=== PATIENT | female | born 1940 | race Caucasian/White ===

== ENCOUNTER → 2016-11-30 | Outpatient (CLI) | payer MEDICARE, BC ==
[~2016-11-30] MED LIST: AMBIEN PO; CAPOZIDE PO; CAPTOPRIL PO; MILK OF MAGNESIA PO; NEURONTIN300 MG PO; OXYCODONE-ACET1 EACH PO; PATIENT'S PHARMACY; THYROID PO
--- NOTE | ~2016-11-30 | MR31 ---
[facility] A Service of [facility] RADIOLOGY TEXT RESULTS PATIENT: KRIS INTERIANO LOCATION: [facility] : 36 UNIT #: [id number] AGE: [address]: Alex Davidson MD SEX: F ORDER DR: [id number] [place] [id number] O MR#: [id number] Acc #: [id number] NAME: KRIS INTERIANO : 1940 SEX: F STUDY DATE/TIME: 11/30/2016 11:18 UNIT: [facility] ROOM: STUDY DESCRIPTION: MR Cervical WWo Contrast Attending Physician: Alex Davidson M.D. Referring Physician: Alex Davidson M.D. Ordering Physician: Alex Davidson M.D. Primary Care Physician: Primary Care Physician No MRI CENTER REPORT This report is preliminary unless electronic signature is present. EXAM Cervical spine MRI with and without contrast 11/30/2016 PROCEDURE Routine cervical spine MRI with and without contrast. COMPARISON Prior MRI 10/19/2009. HISTORY Previous cervical fusion with 1 year history of increasing neck pain. FINDINGS There has been multilevel corpectomy and strut grafting. Strut graft extends from C4-C7. Alignment is normal. Allowing for postoperative changes, bone marrow and cord signal appear normal. The paraspinous tissues are remarkable only for very tortuous common carotid arteries bilaterally left greater than right. No abnormal enhancement is seen. At C2-3, there is no canal or foraminal compromise. At C3-4, there is mild canal and left foraminal narrowing while the right foramen is normal. At C4-5, there is mild canal narrowing and moderate to severe left foraminal narrowing while the right foramen is normal. At C5-6, the canal and right foramen are normal while there is mild left foraminal narrowing. At C6-7, the canal is normal and there is minimal to mild right and moderate left foraminal narrowing. [facility] A Service [facility] RADIOLOGY TEXT RESULTS PATIENT: KRIS INTERIANO [id number] 36 UNIT #: [id number] AGE: [address]: Alex Davidson MD SEX: F ORDER DR: At C7-T1, the canal and right foramen are normal. There is mild left foraminal narrowing. IMPRESSION Multilevel fusion and strut grafting but no cord compression, no abnormal cord signal. There are some areas of foraminal narrowing. See above for details. No acute-appearing abnormality at any level. The common carotid arteries are tortuous and approach the midline particularly on the left in the mid to lower cervical region but again no acute abnormality is seen. Dictated by... Deshawn Matthew M.D. THIS IS AN ELECTRONICALLY VERIFIED REPORT Deshawn Matthew M.D. at 12/04/2016 9:08 AM JEFF/michel TD: 12/01/2016 06:20 JOB #: [id number] [facility] REPORT Page 1 of 1
[2016-11-30 12:05] LABS: POC - CREATININE 0.71 mg/dL (0.44-1.03); POC - GFR >60.0 mL/min (>60)
== END | disposition home or self-care (01) ==
LOC: SMRI 10:45
PROVIDERS: Pain Medicine Pain Medicine
DX: M54.12 Radiculopathy, cervical region (principal); Z98.1 Arthrodesis status; M99.83 Other biomechanical lesions of lumbar region
CPT/HCPCS: 72156; 82565; A9581